=== PATIENT | male | born 1970 | race Caucasian/White ===

== ENCOUNTER 2022-03-17 19:56 | Inpatient (IN) | payer BC, OTHER ==
[~2022-03-17] VITALS: Ht 170.2 cm; Wt 102.1 kg
--- NOTE | 2022-03-17 20:26 | NUR ---
No beds available in ER at this time. Placed in hallway.
--- NOTE | 2022-03-17 20:35 | NUR ---
DR Arenas into eval patient in [facility].
[2022-03-17 20:52] LABS: HEMATOCRIT 45.2 % (36.7-47.1); MEAN CORPUSCULAR HEMOGLOBIN 31.1 uug (23.8-33.4); MEAN CORPUSCULAR VOLUME 93.2 fL (73.0-96.2); PLATELET COUNT (AUTO) 301 K/uL (152-348)
[2022-03-17 21:07] LABS: MAGNESIUM 2.5 mg/dL (1.8-2.4)
[2022-03-17 21:10] LABS: ALANINE AMINOTRANSFERASE 29 U/L (16-63); ALKALINE PHOSPHATASE 89 U/L (50-136); ASPARTATE AMINOTRANSFERASE 13 U/L (15-37); BILIRUBIN,DIRECT < 0.1 mg/dL (0.0-0.2); BILIRUBIN,TOTAL 0.4 mg/dL (0.2-1.0); CARBON DIOXIDE 28 mmol/L (21-32); CHLORIDE 105 mmol/L (98-107); CREATININE 1.2 mg/dL (0.6-1.3); GLUCOSE 100 mg/dL (74-106); POTASSIUM 4.3 mmol/L (3.5-5.1); TOTAL PROTEIN, SERUM 7.5 g/dL (6.4-8.2); UREA NITROGEN, BLOOD 15 mg/dL (7-18)
[2022-03-17 21:13] LABS: ETHANOL < 3 MG/DL (0-0)
--- NOTE | 2022-03-17 22:33 | NUR ---
Paged [employer] panel sr solutions consultant, waiting for Dr Mues to call back.
--- NOTE | 2022-03-17 22:49 | NUR ---
Placed in room 2a at this time.
--- NOTE | 2022-03-17 22:54 | NUR ---
Dr Arenas spoke with Dr Beverly, who accept patient to inpatient.
--- NOTE | 2022-03-17 23:00 | NUR ---
Dr Arenas spoke with Dr Guzmán for neurology consult.
--- NOTE | 2022-03-17 23:18 | NUR ---
i called to [facility] to regarding medical records that need to be obtained, they state to fax a request to number [phone].
[2022-03-17] MEDS ORDERED: ACETAMINOPHEN 325 MG TABLET PO PRN (23:30)
[2022-03-17] MEDS ORDERED: HYDROCODONE/APAP 5-325MG TABLET PO PRN (23:30)
[2022-03-17] MEDS ORDERED: TEMAZEPAM 15 MG CAPSULE PO PRN (23:30)
[2022-03-17] MEDS ORDERED: ONDANSETRON 4 MG/2 ML VIAL IV PRN (23:30)
--- NOTE | 2022-03-18 00:04 | NUR ---
I told er gas distribution and emergency clerk to please place the pt in transition so meds can be verified and given.
[2022-03-18] MEDS ORDERED: ENOXAPARIN SODIUM 100 MG/ML DISP.SYRIN SQ ONE ×2 (00:30→01:14)
[2022-03-18] MEDS ORDERED: DILTIAZEM HCL 30 MG TABLET ONE ×2 (01:14→06:24)
[2022-03-18] MEDS: DILTIAZEM HCL 30 MG TABLET PO SCH ×2 (01:18→06:26)
[2022-03-18 06:45] LABS: HEMATOCRIT 45.9 % (36.7-47.1); MEAN CORPUSCULAR HEMOGLOBIN 31.7 uug (23.8-33.4); MEAN CORPUSCULAR VOLUME 92.9 fL (73.0-96.2); PLATELET COUNT (AUTO) 279 K/uL (152-348)
--- NOTE | 2022-03-18 07:10 | NUR ---
Received pt. AAOx4. vitals stable no c/of pain.
[2022-03-18] MEDS ORDERED: PANTOPRAZOLE SODIUM 40 MG TABLET.DR PO ONE (07:23)
[2022-03-18] MEDS: PANTOPRAZOLE SODIUM 40 MG TABLET.DR PO SCH (07:27)
[2022-03-18 07:35] LABS: THYROID STIMULATING HORMONE 3.764 mIU/mL (0.358-3.740)
[2022-03-18 07:40] LABS: BILIRUBIN,TOTAL 0.6 mg/dL (0.2-1.0); CREATININE 1.3 mg/dL (0.6-1.3); PHOSPHOROUS 3.5 mg/dL (2.5-4.9); TOTAL PROTEIN, SERUM 7.3 g/dL (6.4-8.2)
[2022-03-18 07:53] LABS: MAGNESIUM 2.2 mg/dL (1.8-2.4)
[2022-03-18 07:56] LABS: *AMPHETAMINE, URINE NEGATIVE (NEGATIVE); *CANNABINOID, URINE NEGATIVE (NEGATIVE); *COCCAINE, URINE NEGATIVE (NEGATIVE); *OPIATE, URINE NEGATIVE (NEGATIVE); *PHENCYCLIDINE SCREEN,URINE NEGATIVE (NEGATIVE)
--- NOTE | 2022-03-18 08:30 | NUR ---
patient seen by patient escort. Dr. Gabriel
--- NOTE | 2022-03-18 08:53 | NUR ---
With physical therapy pt's heart rate 130's. SBO 130/83 saturation of 98% on RA. 97.7. rr 14.
[2022-03-18] MEDS ORDERED: DILTIAZEM HCL CD 120 MG CAP.SR.24H PO SCH (09:00)
[2022-03-18] MEDS ORDERED: DILTIAZEM HCL CD 240 MG CAP.SR.24H PO SCH (10:00)
--- NOTE | 2022-03-18 10:33 | NUR ---
Shovel Mechanic transport in the unit to take pt. to [facility]. Patient left AAOX4 vitals stable.
--- NOTE | 2022-03-18 10:42 | NUR ---
HR of 119 sbp 116/79.
[2022-03-18] MEDS ORDERED: ENOXAPARIN SODIUM 100 MG/ML DISP.SYRIN SQ SCH (11:00)
--- NOTE | 2022-03-18 12:30 | NUR ---
Patient back from [place] [id number]. HR 78, 119/69. No c/of of pain.
--- NOTE | 2022-03-18 12:31 | NUR ---
Call for report pt. will be going to room 322 nurse will call when ready to take pt.
--- NOTE | 2022-03-18 13:45 | NUR ---
ADMITTED FROM HOME A 51 YO MALE FROM HOME ALERT AND ORIENTED X4 C/O DIZZINESS, PARTIDA, CHEST PAIN, BLURRED VISION. ROUTINE ADMISSION ASSESSMENT INITIATED. DENIES FURTHER BLURRING OF VISION, NO DIZZINESS UPON ARRIVAL IN ROOM. .ADMISSION ORDERS IN PLACE AND CARRIED. CONTROLLED AFIB ON MONITOR
[2022-03-18] MEDS: ENOXAPARIN SODIUM 100 MG/ML DISP.SYRIN SQ SCH ×2 (14:14→21:39)
[2022-03-18 14:21] VITALS: BP 99/61
--- NOTE | 2022-03-18 15:53 | NUR ---
DR BARAJAS CALLED MADE AWARE OF MRI RESULTS, ADVISED TO MAINTAIN BP AT 150, AND WILL TALK TO DR HESTER ABOUT ADJUSTING DOSE OF CARDIZEM
[2022-03-18 16:24] VITALS: BP 112/82
[2022-03-18] MEDS ORDERED: [UNRECOGNIZED DRUG - OTHER] (16:48)
--- NOTE | 2022-03-18 18:29 | NUR ---
SEEN BY DR BARAJAS WITH ORDER TO FOLLOW UP WITH SPEECH, PER MD NO PT/OT
--- NOTE | 2022-03-18 19:30 | NUR ---
Patient alert oriented, no sob no chest pain, tele monitor A fib control. Patient remains stable, no adverse changes noted, instructed to call for help when going to the toilet, or he needs do adl's, cont to monitor.
[2022-03-18 20:00] VITALS: BP 113/82
[2022-03-19] VITALS: BP 110/78
--- NOTE | 2022-03-19 06:10 | NUR ---
Patient alert oriented, slept most of the night, no adverse changes noted, no complain of pain, A fib control on tele, cont to monitor. v/s stable.
[2022-03-19] MEDS: PANTOPRAZOLE SODIUM 40 MG TABLET.DR PO SCH (06:26)
[2022-03-19 06:53] LABS: HEMATOCRIT 41.3 % (36.7-47.1); MEAN CORPUSCULAR HEMOGLOBIN 31.4 uug (23.8-33.4); MEAN CORPUSCULAR VOLUME 92.9 fL (73.0-96.2); PLATELET COUNT (AUTO) 259 K/uL (152-348)
[2022-03-19 07:03] LABS: CREATININE 1.3 mg/dL (0.6-1.3); POTASSIUM 4.2 mmol/L (3.5-5.1)
[2022-03-19] MEDS ORDERED: APIXABAN 5 MG TABLET PO SCH (09:00)
[2022-03-19 11:33] VITALS: BP 125/78
[2022-03-19] MEDS ORDERED: METH1TAB31 PO (11:55)
[2022-03-19] MEDS: METOPROLOL SUCCINATE XL 50 MG TAB.SR.24H PO SCH (13:00)
[2022-03-19 15:20] VITALS: BP 110/73
[2022-03-19] MEDS ORDERED: RIVAROXABAN 10 MG TABLET PO SCH (18:00)
[2022-03-19 20:37] VITALS: BP 117/79
[2022-03-19] MEDS ORDERED: ATORVASTATIN 40 MG TABLET PO SCH (21:00)
[2022-03-20 00:07] VITALS: BP 128/87
[2022-03-20 04:15] VITALS: BP 111/79
--- NOTE | 2022-03-20 05:52 | NUR ---
RECEIVED REPORT FROM CHARGE NURSE PT IS ALERT AND ORIENTED X4 ENTERED ROOM PT TALKING WITH SOMEONE ON THE COMPUTER NO SIGNS OF RESPIRATORY DISTRESS NOTED NO ADVERSE REACTION FROM MEDICATION PT SLEPT THROUGH THE NIGHT WILL CONTINUE TO MONITOR FOR SAFETY
[2022-03-20] MEDS: PANTOPRAZOLE SODIUM 40 MG TABLET.DR PO SCH (06:55)
[2022-03-20 09:06] VITALS: BP 122/79
[2022-03-20] MEDS: METOPROLOL SUCCINATE XL 50 MG TAB.SR.24H PO SCH (09:06)
[2022-03-20] MEDS ORDERED: METO-357 PO (10:16)
[2022-03-20] MEDS ORDERED: RIVA10TA PO (10:16)
--- NOTE | 2022-03-20 12:10 | NUR ---
pt is a/o x 4, s/p stroke. no physical weakness. pt states he does have deficit and difficulty in reading, speed effected post stroke. Pt stated MD was aware. Pt is discharged home, educational materials provided, prescribed medication education provided, MD notes and echocardiogram preliminary report provided. Pt's at bedside to take him home. Advised not to operate machinery until deemed safe by PCP. Pt verbalized understanding. IV and ID bands removed.
== END 2022-03-20 11:45 | disposition home or self-care (01) | DRG 65 ==
LOC: ER 20:02 → TRANSITION 03-18 00:09 → TELE3 03-18 13:26
PROVIDERS: ADMIT Internal Medicine; ATTEND Internal Medicine
DX: I63.412 Cerebral infarction due to embolism of left middle cerebral artery (principal); I42.9 Cardiomyopathy, unspecified; I48.91 Unspecified atrial fibrillation; R41.89 Other symptoms and signs involving cognitive functions and awareness; R29.700 NIHSS score 0; I10 Essential (primary) hypertension; R48.0 Dyslexia and alexia; Z86.16 Personal history of COVID-19
CPT/HCPCS: 36415; 70551; 71045; 83735; 84100; 84443; 84484; 85025; 93005; 93307; 93880; A4663; G0378; G0480; J1650